=== PATIENT | female | born 1955 | race Native Hawaiian/Other Pacific Islander ===

== ENCOUNTER 2019-08-20 11:03 | Outpatient (CLI) | payer OTHER ==
[~2019-08-20 11:03] MED LIST: ALPR0.5T24 PO; AMBIEN5 MG PO; ANAS1TAB PO; ASPIR-8181 MG PO; BENICAR40 MG PO; LIPITOR20 MG PO; TIZA4TAB5 PO; TRAM50TA PO; TRAZ50TA36 PO; ZOFRAN8 MG PO
== END 2019-08-20 19:15 | disposition home or self-care (01) ==
LOC: RAD 11:03
DX: R05 Cough (principal)

== ENCOUNTER 2019-08-26 09:42 | Outpatient (CLI) | payer OTHER | END 2019-08-26 18:59 | disposition home or self-care (01) | LOC: US 09:42 | DX: E05.80 Other thyrotoxicosis without thyrotoxic crisis or storm (principal) ==

== ENCOUNTER 2021-01-13 10:07 | Outpatient (CLI) | payer OTHER ==
[2021-01-13 10:55] LABS: PLATELET COUNT 487 K/uL (152-353)
[2021-01-13 12:08] LABS: POTASSIUM 4.1 mmol/L (3.6-5.2)
== END 2021-01-13 21:45 | disposition home or self-care (01) ==
LOC: LAB 10:07
PROVIDERS: ATTEND Nurse Practitioner Family
DX: I10 Essential (primary) hypertension (principal); E78.49 Other hyperlipidemia; G47.00 Insomnia, unspecified; C34.90 Malignant neoplasm of unspecified part of unspecified bronchus or lung; C44.90 Unspecified malignant neoplasm of skin, unspecified; M10.9 Gout, unspecified; M51.36 Other intervertebral disc degeneration, lumbar region; J44.9 Chronic obstructive pulmonary disease, unspecified; I25.10 Atherosclerotic heart disease of native coronary artery without angina pectoris; F41.8 Other specified anxiety disorders; Z79.899 Other long term (current) drug therapy
CPT/HCPCS: 80053; 80061; 83036; 84439; 84443; 85027

== ENCOUNTER 2021-07-01 09:47 | Outpatient (CLI) | payer OTHER | END 2021-07-01 21:58 | disposition home or self-care (01) | LOC: RAD 09:47 | PROVIDERS: ATTEND Nurse Practitioner Family | DX: M25.562 Pain in left knee (principal); M79.89 Other specified soft tissue disorders; R22.31 Localized swelling, mass and lump, right upper limb ==